=== PATIENT | female | born 1950 | race Caucasian/White ===

== ENCOUNTER 2018-08-22 10:40 | Emergency (ER) | payer MEDICARE, BC ==
[2018-08-22] MEDS ORDERED: Losartan 50 MG Tab PO ONE (11:24)
--- NOTE | 2018-08-22 11:27 | EDM.PDOC ---
ED HPI GENERAL MEDICAL PROBLEM - General Chief Complaint: General Stated Complaint: HIGH BP Time Seen by Provider: 08/22/18 11:05 Source of Information: Reports: Patient History Limitations: Reports: No Limitations - History of Present Illness INITIAL COMMENTS - FREE TEXT/NARRATIVE: 68-year-old female in with blood pressure concerns. She has chronic hypertension , its very sensitive to other medications and she is currently on prednisone for a persistent flareup of gout. This morning she felt a little lightheaded and had some mild back discomfort so checked her blood pressure and it was 150/ 90 which is somewhat higher than it usually is. She was told that if she has a bump in her blood pressure she can take an extra losartan, however she rechecked her blood pressure several times instead and he continued to rise so she came in. On arrival it was 190/110. She is very anxious. No shortness of breath, denies nausea or vomiting. No chest pain. Onset: Gradual Associated Symptoms: Reports: Other (Ankle pain, gout) - Related Data Allergies Allergy/AdvReac Type Severity Reaction Status Date / Time hydrocodone Allergy Severe Anaphylactic Verified 08/22/18 10:55 Shock Iodinated Contrast- Oral and Allergy Severe Difficulty Verified 08/22/18 10:55 IV Dye Breathing Home Meds: Home Meds Alendronate [Fosamax] 70 mg PO Q7D@0600 10/25/15 [History] Aspirin [Halfprin] 81 mg PO DAILY 10/25/15 [History] Calcium Carb/Vitamin D3/Vit K1 [Calcium + Vit D & K Chew] 2 each PO DAILY [History] Clobetasol [Clobetasol Propionate 0.05%] 30 gm TOP BID PRN 10/25/15 [History] Cyanocobalamin (Vitamin B-12) [Vitamin B-12] 1,000 mcg SL DAILY 10/25/15 [ History] Levothyroxine Sodium [Synthroid] 125 mcg PO ACBREAKFAST 10/25/15 [History] Multivitamin [Gfg-Rtuymu-Labye] 1 each PO DAILY 10/25/15 [History] Simvastatin [Zocor] 10 mg PO DAILY 10/25/15 [History] Triamterene/Hydrochlorothiazid [Maxzide 75 mg-50 mg Tablet] 1 tab PO DAILY 10/24 [History] Ibuprofen 400 mg PO BID PRN 07/03/18 [History] predniSONE [Prednisone] 40 mg PO DAILY 08/22/18 [History] Past Medical History Cardiovascular History: Reports: Heart Murmur, Hypertension [employer] History: Reports: Other [employer] O[employer]ATOR History: hysterectomy Musculoskeletal History: Reports: Arthritis, Gout Neurological History: Reports: Migraines Endocrine/Metabolic History: Reports: Hypothyroidism Oncologic (Cancer) History: Reports: Other (See Below) Other Oncologic History: bone tumor removed/begnin Dermatologic History: Reports: Other (See Below) Other Dermatologic History: dry skin - Infectious Disease History Infectious Disease History: Reports: Mumps, Rubella - Past Surgical History HEENT Surgical History: Reports: Eye Surgery, Oral Surgery GI Surgical History: Reports: Bariatric Procedure, Cholecystectomy Female Surgical History: Reports: Tubal Ligation Musculoskeletal Surgical History: Reports: Other (See Below) Other Musculoskeletal Surgeries/Procedures:: giant cell tumor pubic bone removed , nerve damage Social & Family History - Family History HEENT: Reports: Glaucoma Cardiac: Reports: [place] Neurological: Reports: [place] Endocrine/Metabolic: Reports: Diabetes, Type I, Hypothyroidism Dermatologic: Reports: Other (See Below) Other Dermatologic Family History: melanoma Oncologic: Reports: Brain - Tobacco Use Smoking Status *Q: Former Smoker Years of Tobacco use: 10 Packs/Tins Daily: 0.5 Used Tobacco, but Quit: Yes Month/Year Tobacco Last Used: Second Hand Smoke Exposure: No - Caffeine Use Caffeine Use: Reports: Coffee Other Caffeine Use: 2 to 3 cups coffee a day Caffeine Use Comment: 2 cups coffee 1 cup tea daily - Alcohol Use Days Per Week of Alcohol Use: 7 Number of Drinks Per Day: 2 Total Drinks Per Week: 14 - Recreational Drug Use Recreational Drug Use: No ED ROS GENERAL - Review of Systems Review Of Systems: See Below Constitutional: Denies: Fever, Chills HEENT: Reports: No Symptoms Respiratory: Denies: Shortness of Breath, Cough Cardiovascular: Denies: Chest Pain, Palpitations GI/Abdominal: Denies: Nausea, Vomiting Skin: Reports: Other (Face felt flushed) Neurological: Reports: Dizziness (Mild dizziness). Denies: Headache Psychiatric: Reports: Anxiety ED EXAM, GENERAL - Physical Exam Exam: See Below Exam Limited By: No Limitations General Appearance: Alert, No Apparent Distress, Anxious Eye Exam: Bilateral Eye: Normal Inspection Head: Atraumatic Respiratory/Chest: No Respiratory Distress, Lungs Clear Cardiovascular: Regular Rate, Rhythm. No: Extra Beats GI/Abdominal: Non-Tender Extremities: Other (The right foot MP joint has minimal inflammation and good range of motion actively). No: Pedal Edema Neurological: Alert, Oriented Psychiatric: Anxious Skin Exam: Warm, Dry Course - Vital Signs Last Recorded V/S: Last Vital Signs Temp 95.4 F 08/22/18 10:55 Pulse 82 08/22/18 10:55 Resp 18 08/22/18 10:55 BP 167/82 H 08/22/18 11:33 Pulse Ox 97 08/22/18 10:55 - Orders/Labs/Meds Meds: Medications Discontinued Medications Generic Name Dose Route Start Last Admin Trade Name Tamika PRN Reason Stop Dose Admin Losartan Potassium 50 mg 08/22/18 11:24 08/22/18 11:33 Cozaar PO 08/22/18 11:25 50 mg ONETIME ONE Administration - Re-Assessments/Exams Free Text/Narrative Re-Assessment/Exam: 08/22/18 11:27 Patient was reassured and a dose of 50 mg of losartan was given orally. 08/22/18 12:09 Blood pressure normalized to 166/80 within 30 minutes. Patient was still concerned about the level of blood pressure but her symptoms seemed better. We had a long discussion of the benefits and risks of prednisone, hypertension, and her gout. She is going to continue on losartan twice daily, continue the prednisone taper and discuss any other options with Dr. Shay in the next several days. Departure - Departure Time of Disposition: 12:18 Disposition: Home, Self-Care 01 Condition: Good Clinical Impression: Hypertension Qualifiers: Hypertension type: essential hypertension Qualified Code(s): I10 - Essential ( primary) hypertension Gout Qualifiers: Gout site: toe Gout etiology: idiopathic Chronicity: acute Laterality: right Qualified Code(s): M10.071 - Idiopathic gout, right ankle and foot - Discharge Information Instructions: Hypertension, [id number] Referrals: Brennen Gregory MD [Primary Care Provider] - Forms: ED Department Discharge Care Plan Goals: Continue your prednisone taper and double your blood pressure medication over the next several days, and return if symptoms are worsening or you develop other concerns. Otherwise discuss her symptoms with Dr. Looney for further advice or suggestions. Tylenol and ibuprofen is safe to add for your headache.
[2018-08-22 11:34] VITALS: BP 167/82
== END 2018-08-22 12:19 | disposition home or self-care (01) ==
LOC: JP.ED 10:40
DX: I10 Essential (primary) hypertension (principal); M10.071 Idiopathic gout, right ankle and foot; E03.9 Hypothyroidism, unspecified; Z79.82 Long term (current) use of aspirin; Z79.891 Long term (current) use of opiate analgesic; Z79.899 Other long term (current) drug therapy; Z87.891 Personal history of nicotine dependence; Z90.710 Acquired absence of both cervix and uterus; Z90.49 Acquired absence of other specified parts of digestive tract; Z98.51 Tubal ligation status; Z98.890 Other specified postprocedural states
CPT/HCPCS: 99283; A9270

== ENCOUNTER 2018-11-08 07:28 | Day surgery (SDC) | payer BC, MEDICARE ==
[2018-11-08] MEDS ORDERED: Lactated Ringers 1,000 ML IV SCH (08:15)
[2018-11-08] MEDS ORDERED: Propofol 200 MG/20 ML SDV ONE (09:26)
[2018-11-08] MEDS ORDERED: fentaNYL 100 MCG/2 ML SDV ONE (09:26)
[2018-11-08] MEDS ORDERED: Midazolam 1 MG/ML 2 ML SDV ONE (09:26)
[2018-11-08 11:20] VITALS: BP 140/84
--- NOTE | 2018-11-08 12:05 | OR ---
DATE OF PROCEDURE: 11/08/2018 PREOPERATIVE DIAGNOSIS: Colon cancer screening. POSTOPERATIVE DIAGNOSIS: Diverticulosis. PROCEDURE: Colonoscopy to the cecum. SURGEON: Trino Simons MD. ANESTHESIA: IV anesthesia with monitored anesthesia care. INDICATION: This 68-year-old white female is referred for a colonoscopy for colon cancer screening. She says her last colonoscopic exam was done at least 10 years ago. I counseled her for the procedure, including risks and alternatives, and she gave her informed consent to proceed. DESCRIPTION OF PROCEDURE: The patient was placed in the left lateral decubitus position. IV anesthesia was administered by the Anesthesia Service. Time-out was held. A rectal exam was performed, which was unremarkable. The flexible video Olympus colonoscope was introduced through her anus, up her rectum and out her colon all the way to the cecum. En route, we saw both right and left-sided diverticula. There was no bleeding or inflammation associated with any of them. Once the cecum was reached, the scope was slowly withdrawn examining the mucosa throughout. No additional mucosal abnormalities were noted. No neoplastic lesions were seen. The scope was retroflexed in the rectum with the distal rectum appearing unremarkable. The scope was straightened and removed. She tolerated the procedure well. Trino Simons MD /[id number] MTDD
== END 2018-11-08 11:20 | disposition home or self-care (01) ==
LOC: JP.SDS 07:28
PROVIDERS: ATTEND Surgery
DX: Z12.11 Encounter for screening for malignant neoplasm of colon (principal); K57.30 Diverticulosis of large intestine without perforation or abscess without bleeding; I10 Essential (primary) hypertension; E66.01 Morbid (severe) obesity due to excess calories; E78.5 Hyperlipidemia, unspecified; Z88.5 Allergy status to narcotic agent; Z91.040 Latex allergy status; Z91.041 Radiographic dye allergy status
CPT/HCPCS: G0121; J2250; J2704; J3010

== ENCOUNTER 2020-05-15 07:13 | Day surgery (SDC) | payer MEDICARE ==
[2020-05-15] MEDS ORDERED: Lactated Ringers 1,000 ML IV ONE (08:00)
[2020-05-15] MEDS ORDERED: Cyanocobalamin (Vitamin B12) 1,000 MCG/ML SDV IM ONE (08:00)
[2020-05-15] MEDS ORDERED: Glycopyrrolate 0.2 MG/ML 2 ML SDV IVPUSH ONE (08:00)
[2020-05-15] MEDS ORDERED: fentaNYL 100 MCG/2 ML SDV ONE (08:35)
[2020-05-15] MEDS ORDERED: Midazolam 1 MG/ML 2 ML SDV ONE (08:35)
[2020-05-15] MEDS ORDERED: Propofol 200 MG/20 ML SDV ONE (08:36)
[2020-05-15] MEDS ORDERED: MVI, Adult with Vitamin K 10 ML, Thiamine 200 MG, Chromium/Copper/Mang/Selen/Zn 1 ML in... IV ONE ×4 (09:00)
[2020-05-15] MEDS ORDERED: Pantoprazole 40 MG Vial IVPUSH ONE (09:15)
[2020-05-15] MEDS ORDERED: Sodium Ferric Gluconate Cmplex 250 MG in Sodium Chloride 0.9% 100 ML IV ONE (10:00)
[2020-05-15] MEDS ORDERED: diphenhydrAMINE 50 MG/ML SDV IVPUSH PRN (10:50)
[2020-05-15] MEDS ORDERED: Famotidine 20 MG/2 ML SDV IVPUSH PRN (10:51)
[2020-05-15] MEDS ORDERED: Hydrocortisone Sodium Succinate 100 MG/2 ML SDV IVPUSH PRN (10:52)
[2020-05-15 15:17] VITALS: BP 145/76; PULSE 74
--- NOTE | 2020-05-22 08:32 | OR ---
DATE OF PROCEDURE: 05/15/2020 SURGEON: Marcos Jean MD PREOPERATIVE DIAGNOSIS: Left upper abdominal pain, status post Rafita-en-Y gastric bypass. POSTOPERATIVE DIAGNOSIS: Superficial marginal ulcer, status post Rafita-en-Y gastric bypass. OPERATIVE PROCEDURE: Upper gastrointestinal endoscopy with biopsies of gastric pouch for CLOtest. ANESTHESIA: IV sedation. INDICATIONS FOR PROCEDURE: This is a 70-year-old status post previous Rafita-en-Y gastric bypass, presenting with some ongoing left upper quadrant pain. She was also noted to have some degree of iron deficiency. Plan is to proceed with upper GI endoscopy with biopsies as indicated. Potential risks including bleeding and perforation were discussed, and the patient wishes to proceed. DETAILS OF PROCEDURE: The patient was taken to the operating room, placed in a left lateral decubitus position. IV sedation was administered, after which the upper GI endoscope was passed orally through the length of the esophagus into the gastric pouch, from there through the gastrojejunostomy roughly 20 cm into the Rafita limb. Findings included normal hypopharynx, larynx, upper esophageal sphincter, esophageal body. At the EG junction, no significant inflammation was noted. Within the gastric pouch, there was perhaps some very slight edema of the mucosa. The patient has been having superficial marginal ulcer present in the jejunum tangential with the gastrojejunostomy consistent with a marginal ulcer. thin layer of fibrinous exudate. No blood or bleeding was seen. No stricturing was evident at the gastrojejunostomy. Remainder of the visualized portions of the Rafita limb were unremarkable. At this point, biopsies were taken from the gastric pouch, sent for CLOtest for H pylori. Minimal bleeding from the biopsy site was seen and the procedure was then concluded. The patient will be given Protonix 40 mg IV in the recovery room and then begin Protonix 40 mg daily, and she will be following up with Shonna Cannon at [facility] in roughly 1 month. The patient was also noted to have marginally low ferritin and will be given ferric gluconate 250 mg IV in the postoperative recovery area. Marcos Jean MD /[id number]
== END 2020-05-15 15:22 | disposition home or self-care (01) ==
LOC: JP.SDS 07:13
PROVIDERS: ATTEND Surgery
DX: K28.9 Gastrojejunal ulcer, unspecified as acute or chronic, without hemorrhage or perforation (principal); I10 Essential (primary) hypertension; E66.9 Obesity, unspecified; Z98.84 Bariatric surgery status; Z93.1 Gastrostomy status
CPT/HCPCS: 43239; 87081; C9113; J2250; J2704; J2916; J3010; J3411; J3420; J3490; J7120

== ENCOUNTER 2022-12-22 19:19 | Emergency (ER) | payer MEDICARE ==
[2022-12-22] MEDS ORDERED: Acetaminophen 325 MG Tab PO ONE (20:04)
[2022-12-22 20:10] LABS: BASOPHILS ABSOLUTE AUTO 0.04 K/uL (0.00-0.10); BASOPHILS PERCENT AUTO 0.6 % (0.1-1.3); HEMATOCRIT 40.4 % (34.3-46.0); HEMOGLOBIN 14.1 g/dL (11.2-15.5); IMMATURE GRAN ABSOLUTE AUTO 0.02 K/uL (0.00-0.23); IMMATURE GRAN PERCENT AUTO 0.3 % (0.0-0.7); LYMPHOCYTES ABSOLUTE AUTO 2.53 K/uL (0.8-3.3); LYMPHOCYTES PERCENT AUTO 37.7 % (11.4-47.7); MEAN CORPUSCULAR HEMOGLOBIN 32.3 pg (31.6-35.5); MEAN CORPUSCULAR HGB CONC 34.9 g/dL (31.6-35.5); MEAN CORPUSCULAR VOLUME 92.7 fL (81.4-99.0); MONOCYTES PERCENT AUTO 8.9 % (3.3-12.6); NEUTROPHILS ABSOLUTE AUTO 3.32 K/uL (1.0-7.6); NEUTROPHILS PERCENT AUTO 49.5 % (40.0-78.1); PLATELET COUNT,PLT 259 K/uL (130-375); RED BLOOD CELL COUNT 4.36 M/uL (3.77-5.24); WHITE BLOOD CELL COUNT,WBC 6.7 K/uL (3.2-11.0)
[2022-12-22 20:33] LABS: CALCIUM 9.5 mg/dL (8.5-10.1); CREATININE 0.9 mg/dL (0.6-1.0); EST CRCL DRUG DOSING (CG) 43.37 mL/min; POTASSIUM,K 4.4 mmol/L (3.6-5.2); TROPONIN I HIGH SENSITIVITY 7.6 pg/mL (<=60.3)
[2022-12-22 20:34] LABS: ANION GAP 10.4 mmol/L (5.0-14.0)
[2022-12-22 22:48] VITALS: BP 147/63; PULSE 64
== END 2022-12-22 23:03 | disposition home or self-care (01) ==
LOC: JP.ED 19:19
DX: I10 Essential (primary) hypertension (principal); E03.9 Hypothyroidism, unspecified; M19.90 Unspecified osteoarthritis, unspecified site; Z79.82 Long term (current) use of aspirin; Z79.899 Other long term (current) drug therapy; Z88.8 Allergy status to other drugs, medicaments and biological substances; Z91.041 Radiographic dye allergy status
CPT/HCPCS: 36415; 71045; 80048; 84484; 85025; 85379; 93005; 99284; A9270

== ENCOUNTER 2024-04-12 07:33 | Day surgery (SDC) | payer MEDICARE ==
[~2024-04-12 07:33] MED LIST: Propofol 200 MG/20 ML SDV ONE
[2024-04-12] MEDS: Sodium Chloride 0.9% 1,000 ML IV SCH (08:30)
[2024-04-12 10:34] VITALS: BP 157/67; PULSE 58
== END 2024-04-12 10:46 | disposition home or self-care (01) ==
LOC: JP.SDS 07:33
PROVIDERS: ATTEND Surgery
DX: R10.13 Epigastric pain (principal); I10 Essential (primary) hypertension; E66.9 Obesity, unspecified
CPT/HCPCS: 43235; J2704; J7030; 00731-QZ

== ENCOUNTER 2024-09-02 11:17 | Emergency (ER) | payer MEDICARE ==
[2024-09-02 11:52] LABS: BASOPHILS ABSOLUTE AUTO 0.04 K/uL (0.00-0.10); BASOPHILS PERCENT AUTO 0.6 % (0.1-1.3); EOSINOPHILS ABSOLUTE AUTO 0.14 K/uL (0.00-0.40); EOSINOPHILS PERCENT AUTO 2.1 % (0.0-5.4); HEMATOCRIT 37.1 % (34.3-46.0); IMMATURE GRAN PERCENT AUTO 0.3 % (0.0-0.7); LYMPHOCYTES ABSOLUTE AUTO 2.09 K/uL (0.8-3.3); LYMPHOCYTES PERCENT AUTO 31.4 % (11.4-47.7); MEAN CORPUSCULAR HEMOGLOBIN 32.7 pg (31.6-35.5); MEAN CORPUSCULAR VOLUME 93.5 fL (81.4-99.0); MONOCYTES ABSOLUTE AUTO 0.55 K/uL (0.20-0.90); MONOCYTES PERCENT AUTO 8.3 % (3.3-12.6); NEUTROPHILS ABSOLUTE AUTO 3.82 K/uL (1.0-7.6); NEUTROPHILS PERCENT AUTO 57.3 % (40.0-78.1); PLATELET COUNT,PLT 227 K/uL (130-375); RED BLOOD CELL COUNT 3.97 M/uL (3.77-5.24); WHITE BLOOD CELL COUNT,WBC 6.7 K/uL (3.2-11.0)
[2024-09-02 11:55] LABS: IMMATURE GRAN ABSOLUTE AUTO 0.02 K/uL (0.00-0.23)
[2024-09-02 12:27] LABS: ALANINE AMINOTRANSFERASE,ALT 33 U/L (12-78); ALBUMIN 3.8 g/dL (3.4-5.0); ALKALINE PHOSPHATASE 87 U/L (46-116); ASPARTATE AMNIOTRANSFERASE,AST 23 U/L (15-37); BILIRUBIN TOTAL 0.9 mg/dL (0.2-1.0); BLOOD UREA NITROGEN,BUN 25 mg/dL (7-18); CALCIUM 9.5 mg/dL (8.5-10.1); CARBON DIOXIDE,CO2 31 mmol/L (21-32); CHLORIDE,CL 101 mmol/L (100-108); CREATININE 0.9 mg/dL (0.6-1.0); EST CRCL DRUG DOSING (CG) 42.06 mL/min; ESTIMATED GFR 66 mL/min (>60); GLUCOSE RANDOM 110 mg/dL (74-106); POTASSIUM,K 3.6 mmol/L (3.6-5.2); PROTEIN TOTAL,TP 7.6 g/dL (6.4-8.2); SODIUM,NA 139 mmol/L (140-148); TROPONIN I HIGH SENSITIVITY 7.4 pg/mL (<=60.3)
[2024-09-02 12:37] LABS: ANION GAP 10.6 mmol/L (5.0-14.0)
[2024-09-02] MEDS: Acetaminophen 500 MG Tab PO ONE (12:42)
[2024-09-02] MEDS: traMADol 50 MG Tab PO ONE (12:42)
[2024-09-02 14:09] VITALS: BP 171/75; PULSE 62
== END 2024-09-02 14:14 | disposition home or self-care (01) ==
LOC: JP.ED 11:17
DX: M62.838 Other muscle spasm (principal); M25.512 Pain in left shoulder; I10 Essential (primary) hypertension; K21.9 Gastro-esophageal reflux disease without esophagitis; E03.9 Hypothyroidism, unspecified; Z79.899 Other long term (current) drug therapy; Z79.82 Long term (current) use of aspirin; Z88.5 Allergy status to narcotic agent; Z91.041 Radiographic dye allergy status; Z91.048 Other nonmedicinal substance allergy status
CPT/HCPCS: 36415; 71045; 73030; 80053; 84484; 85025; 96374; 99283; A9270; J3360